=== PATIENT | female | born 1955 | race Native Hawaiian/Other Pacific Islander ===

== ENCOUNTER 2019-08-28 09:41 | Outpatient (CLI) | payer OTHER | END 2019-08-28 19:38 | disposition home or self-care (01) | LOC: RESP 09:41 | DX: R07.89 Other chest pain (principal); R06.02 Shortness of breath | CPT/HCPCS: 93306 ==

== ENCOUNTER 2019-09-02 08:31 | Outpatient (CLI) | payer OTHER ==
[~2019-09-02] VITALS: Ht 157.5 cm; Wt 88.9 kg
== END 2019-09-02 19:59 | disposition home or self-care (01) ==
LOC: NM 08:31
DX: R07.89 Other chest pain (principal); R06.02 Shortness of breath
CPT/HCPCS: A9500; J2785